=== PATIENT | female | born 1960 | race Caucasian/White ===

== ENCOUNTER → 2021-09-24 09:28 | Outpatient (CLI) | payer MEDICARE, SELFPAY ==
--- NOTE | ~2021-09-24 | CT_ITS ---
EXAMINATION:CT diagnostic chest wo con DATE: 09/24/2021 09:55 INDICATION: Chest pain under the breasts. Shortness of breath. Cough. TECHNIQUE: Computed tomography (CT) of the chest was performed without intravenous contrast. Automate d exposure control and iterative reconstruction technique were employed. The dose-length product (DLP ) was 373.40 mGy-cm. COMPARISON: None. FINDINGS: Calcified right lung nodules and calcified right hilar lymph nodes are consistent with old granulomatous disease. There are a few scattered nodules in the lungs measuring up to 4 mm, likely be nign. No pleural effusion. The heart size is normal. There are coronary artery calcifications. No per icardial effusion. There are changes of cholecystectomy. There is mild thoracic spondylosis. IMPRESSION: 1. No etiology for the patient's symptoms. Reviewed, dictated and finalized at location A. G[employer] TECHN[employer]Y
== END ==
PROVIDERS: Visit Provider Physical Medicine & Rehabilitation Pain Medicine
DX: R07.9 Chest pain, unspecified (principal)
CPT/HCPCS: 71250

== ENCOUNTER → 2021-10-10 11:31 | Outpatient (CLI) | payer MEDICARE, SELFPAY ==
--- NOTE | ~2021-10-10 | XR_ITS ---
XR knee RT 3V DATE: 10/10/2021 12:00 INDICATION: Right knee pain TECHNIQUE: AP, lateral, sunrise views COMPARISON: None FINDINGS: Diffuse osteopenia. There is minimal periarticular spurring of the patella. No fracture or dislocation or joint effusion. No periosteal reaction or bone destruction, radiopaque intra-articular loose body or chondrocalcinosis. Joint spaces are well preserved. IMPRESSION: Diffuse osteopenia Minimal periarticular spurring consistent with mild patellofemoral osteoarthritis Osteopenia Reviewed, dictated and finalized at location A. ERN CHART WRITER IMPRESSION: Diffuse osteopenia Minimal periarticular spurring consistent with mild patellofemoral osteoarthrit is Osteopenia
== END ==
PROVIDERS: PCP Internal Medicine; Visit Provider Internal Medicine
DX: M17.11 Unilateral primary osteoarthritis, right knee (principal)
CPT/HCPCS: 73562

== ENCOUNTER 2022-01-24 12:49 | Outpatient (CLI) | payer OTHER, MEDICARE, SELFPAY ==
--- NOTE | 2022-01-24 14:38 | WPDSIXMINUTE ---
Six Minute Walk Procedure Procedure Performed Pulmonary Stress Test (6 min walk) Six Minute Walk Six Minute Walk: The 6 minute walk test was carried out with the patient breathing ambient air. The pre walk oxyhemoglobin saturation was 95%. The patient walked 335 m with no stops during testing. The oxyhemoglobin saturation during the walk remained over 91%. The perceived dyspnea on the Manuel scale was 2 at baseline and increased to 8 at the end of the testing. Impression: No evidence of oxyhemoglobin desaturation on this testing.
--- NOTE | 2022-01-24 14:40 | WPDPFTINT ---
PFT Procedure Performed PFT Procedure Performed Spirometry with Pre/Post Bronchodilator Plethysmography (Lung Vol) Diffusing Cap (DLCO) Flow Vol Loop PFT Interpretation Lung volumes were measured with the body plethysmography method. The elevated RV and FRC are indicative of air trapping. The elevated total lung capacity is indicative of lung hyperinflation. Spirometry showed diminished expiratory flow rates and diminished FEV1 to FVC ratio 33%, consistent with obstructive airway disease. Following administration of a bronchodilator there was no significant increase in expiratory flow rates. Lung diffusion capacity is moderately reduced at 63% predicted. The flow volume loop is consistent with severe emphysema. Impression: Severe obstructive airway disease with evidence of air trapping, lung hyperinflation and no response to bronchodilators on this testing. Moderately reduced lung diffusion capacity.
== END 2022-01-24 12:50 | disposition home or self-care (01) ==
LOC: ANHPFT 12:52
PROVIDERS: PCP Internal Medicine; Visit Provider Internal Medicine Pulmonary Disease
DX: R06.02 Shortness of breath (principal); J44.9 Chronic obstructive pulmonary disease, unspecified
CPT/HCPCS: 94060; 94618; 94726; 94729

== ENCOUNTER 2022-03-25 14:28 | Outpatient (CLI) | payer OTHER, MEDICARE, SELFPAY ==
--- NOTE | ~2022-03-25 | MM_ITS ---
EXAMINATION: MM screening [facility] BI w carlos HISTORY: Screening mammogram TECHNIQUE: Craniocaudal and mediolateral oblique 3-D tomosynthesis images were obtained and synthetic 2-D images were generated. CAD analysis was submitted and interpreted. COMPARISON: No prior mammogram is available for comparison at this institution. BREAST PARENCHYMAL COMPOSITION: The breasts are heterogeneously dense, which may obscure small masses . FINDINGS: Left breast: An irregular proxy 4 x 5 mm density is noted in the upper outer left breast (M LO Tomosynthesis image ). Diagnostic left mammogram and left breast ultrasound examination are re commended Right breast:. There is no evidence of suspicious mass, calcification, or architectural distortion to suggest malignancy in either breast. There has been no suspicious interval change. IMPRESSION: 1. 4 x 5 mm irregular density in the upper outer left breast on MLO view. 2. Diagnostic left mammogram and left breast ultrasound examination are recommended. BI-RADS Category 0: Incomplete: Needs additional imaging evaluation. Reviewed, dictated and finalized at location A. IMPRESSION: 1. 4 x 5 mm irregular density in the upper outer left breast on MLO view. 2. Diagnostic left mammogram and left breast ultrasound examination are recomme nded. BI-RADS Category 0: Incomplete: Needs additional imaging evaluation.
== END 2022-03-25 14:29 | disposition home or self-care (01) ==
LOC: ANHIMG 14:29
PROVIDERS: PCP Physician Assistant; Visit Provider Internal Medicine
DX: Z12.31 Encounter for screening mammogram for malignant neoplasm of breast (principal); R92.8 Other abnormal and inconclusive findings on diagnostic imaging of breast
CPT/HCPCS: 77063; 77067

== ENCOUNTER 2022-04-07 13:11 | Outpatient (CLI) | payer OTHER, MEDICARE, SELFPAY ==
--- NOTE | ~2022-04-07 | MMUS_ITS ---
EXAMINATION: MM diagnostic [facility] LT w carlos, US breast LT limited HISTORY: Left breast mass on screening mammogram TECHNIQUE: Additional 3-D tomosynthesis images of the left breast were performed and synthetic 2-D im ages were generated. CAD analysis was submitted and interpreted. High resolution limited left breast ultrasound was performed. COMPARISON: 03/25/2022 FINDINGS: MAMMOGRAPHIC FINDINGS: There is a 5 mm mass in the middle third of the outer breast at the 3:00 location 5 cm from the nippl e. The mass appears to contain fat, suggestive of an intramammary lymph node. ULTRASOUND: There is no evidence of focal abnormal solid or cystic mass in the vicinity of the mammographic findi ng in question. IMPRESSION: 1. Probably benign left breast mass. 2. Recommend 6 month follow-up left diagnostic mammogram and possible ultrasound. BI-RADS category 3, probably benign findings. Reviewed, dictated and finalized at location A. IMPRESSION: 1. Probably benign left breast mass. 2. Recommend 6 month follow-up left diagnostic mammogram and possible ultrasoun d. BI-RADS category 3, probably benign findings.
== END 2022-04-07 13:12 | disposition home or self-care (01) ==
PROVIDERS: PCP Internal Medicine; Visit Provider Internal Medicine
DX: R92.8 Other abnormal and inconclusive findings on diagnostic imaging of breast (principal)
CPT/HCPCS: 76642; 77061; 77065; G0279

== ENCOUNTER 2022-08-07 11:23 | Outpatient (CLI) | payer OTHER, MEDICARE, SELFPAY ==
--- NOTE | ~2022-08-07 | DEXA_ITS ---
Bone Density Report Name: ORTIZ MALIK Age: 61 Sex: Female Ethnicity: White Date of : 1960 Indication: postmenopausal; screening for osteoporosis; asthma or emphysema; hysterectomy; Referring Provider: CANDELARIO, FELICITAS Giraldo Study: Bone densitometry was performed. Exam Date: August 07, 2022 Accession number: [id number] Bone Density: Region BMD T-score Z-score Classification AP Spine(L1-L4) 0.802 -2.2 -0.7 Osteopenia Femoral Neck (Left) 0.633 -1.9 -0.6 Osteopenia Total Hip (Left) 0.751 -1.6 -0.5 Osteopenia Femoral Neck (Right) 0.641 -1.9 -0.5 Osteopenia Total Hip (Right) 0.806 -1.1 -0.1 Osteopenia Total Hip Mean 0.779 -1.4 -0.3 Osteopenia World Health Organization criteria for BMD impression classify patients as: Normal (T-score at or above -1.0), Osteopenia (T-score between -1.0 and -2.5), or Osteoporosis (T-score at or below -2.5). 10-year Fracture Risk(1): Major Osteoporotic Fracture 9.1% Hip Fracture 1.1% Reported Risk Factors: [place] (), Neck BMD=0.633, BMI=34.6 (1) FRAX(R) Version 3.08. Fracture probability calculated for an untreated patient. Fracture probability may be lower if the patient has received treatment. Clinical Information Provided by Patient: Has used the following medications: Vitamin D Has the following medical conditions: Asthma or Emphysema, Hysterectomy Patient maximum height was 62 Menopause Age: 38 No regular weight bearing exercise Drinks caffeinated beverages Onset of menses at age 13 Number of children 1 Impression: The patient has low bone mass, based on the Total Spine T-score. The patient has an estimated ten-year risk of hip fracture of 1.1% and an estimated ten-year risk of major fracture of 9.1%, based on the WHO FRAX algorithm. Discussion: BONE DENSITY IS LOW AT ONE OR MORE SKELETAL SITES. This patient's lowest T-score is low at one or more skeletal sites. It meets the World Health Organization's (WHO) criteria for ?low bone mass? (T-score between -1.0 and -2.5). The patient's 10-year risk of fracture as calculated by FRAX is less than the threshold where pharmacological therapy is recommended by the National Osteoporosis Foundation (NOF). However, all treatment decisions require clinical judgment and consideration of individual patient factors, including patient preferences, comorbidities, previous drug use, risk factors not captured in the FRAX model (e.g., frailty, falls, vitamin D deficiency, increased bone turnover, interval significant decline in bone density) and possible under or overestimation of fracture risk by FRAX. The patient should follow a healthful lifestyle (good nutrition with adequate calcium and vitamin D, and appropriate weight-bearing exercise). Follow-Up: Consider repeating this study in 2 to 3 year
== END 2022-08-07 11:24 | disposition home or self-care (01) ==
PROVIDERS: PCP Internal Medicine; Visit Provider Internal Medicine
DX: Z78.0 Asymptomatic menopausal state (principal); M85.88 Other specified disorders of bone density and structure, other site; M85.852 Other specified disorders of bone density and structure, left thigh; M85.851 Other specified disorders of bone density and structure, right thigh
CPT/HCPCS: 77080

== ENCOUNTER 2022-09-25 12:28 | Outpatient (CLI) | payer OTHER, MEDICARE, SELFPAY ==
--- NOTE | ~2022-09-25 | CT_ITS ---
CT Scan of the Chest without Contrast: Clinical Indication: Pulmonary nodule Technique: Contiguous sections were acquired throughout the chest without intravenous contrast. Dose reduction technique was used on this scan by utilizing automated exposure control and iterative recon struction technique. The dose-length product (DLP) was 151.80 mGy-cm. COMPARISON: 09/24/2021 Findings: There is no evidence of any significant mediastinal, hilar or axillary lymphadenopathy. The mediastin al soft tissues appear normal. There is no evidence of pleural or pericardial effusion. Subcentimeter pulmonary nodules at the right middle lobe and right lower lobe near the lung base are unchanged from prior exam (axial images 63, 61). Stable left lower lobe pulmonary nodule (axial image 73). Additional calcified granulomas are present. Images through the upper abdomen reveal no abnormalities. Impression: Stable subcentimeter pulmonary nodules, as detailed above, most likely benign. Reviewed, dictated and finalized at [facility]. CRANE OPERATOR Impression: Stable subcentimeter pulmonary nodules, as detailed above, most likely benign.
== END 2022-09-25 12:29 | disposition home or self-care (01) ==
PROVIDERS: PCP Internal Medicine; Visit Provider Physician Assistant
DX: R91.1 Solitary pulmonary nodule (principal)
CPT/HCPCS: 71250

== ENCOUNTER 2023-09-28 10:08 | Outpatient (CLI) | payer OTHER, MEDICARE, SELFPAY ==
--- NOTE | ~2023-09-28 | CT_ITS ---
CT Scan of the Chest without Contrast: Clinical Indication: Lung cancer screening, personal history of nicotine dependence Technique: Contiguous sections were acquired throughout the chest without intravenous contrast. Dose reduction technique was used on this scan by utilizing automated exposure control and iterative recon struction technique. The dose-length product (DLP) was 89.58 mGy-cm. COMPARISON: 09/25/2022 Findings: There is no evidence of any significant mediastinal, hilar or axillary lymphadenopathy. The mediastin al soft tissues appear normal. There is no evidence of pleural or pericardial effusion. 3 mm right lower lobe pulmonary nodule present. Stable 2 mm lobe pulmonary nodule. Stable subcentimet er left lower lobe pulmonary nodule. Calcified right basilar granulomas are present. Images through the upper abdomen reveal no abnormalities. Impression: Lung RADS 2: Benign appearance. 12 month follow-up screening CT advised. Reviewed, dictated and finalized at [facility]. PATCHER Impression: Lung RADS 2: Benign appearance. 12 month follow-up screening CT advised.
== END 2023-09-28 10:09 | disposition home or self-care (01) ==
LOC: ANHIMG 10:10
PROVIDERS: PCP Internal Medicine; Visit Provider Physician Assistant
DX: Z12.2 Encounter for screening for malignant neoplasm of respiratory organs (principal); Z87.891 Personal history of nicotine dependence
CPT/HCPCS: 71271

== ENCOUNTER 2024-02-25 15:40 | Outpatient (CLI) | payer OTHER, MEDICARE, SELFPAY ==
--- NOTE | ~2024-02-25 | MM_ITS ---
EXAMINATION: MM screening [facility] BI w carlos HISTORY: Screening mammogram TECHNIQUE: Craniocaudal and mediolateral oblique 3-D tomosynthesis images were obtained and synthetic 2-D images were generated. CAD analysis was submitted and interpreted. COMPARISON: 04/07/2022, 03/25/2022 BREAST PARENCHYMAL COMPOSITION:Dense: The breasts are heterogeneously dense, which may obscure small masses. FINDINGS: No suspicious mass, calcification, or architectural distortion are identified in either christine ast to suggest malignancy. There has been no suspicious interval change. IMPRESSION: No mammographic evidence of malignancy. Recommend routine screening mammography in one year. BI-RADS Category 1: Negative Reviewed, dictated and finalized at location .
== END 2024-02-25 15:41 | disposition home or self-care (01) ==
PROVIDERS: PCP Internal Medicine; Visit Provider Internal Medicine
DX: Z12.31 Encounter for screening mammogram for malignant neoplasm of breast (principal); Z87.891 Personal history of nicotine dependence
CPT/HCPCS: 77063; 77067

== ENCOUNTER 2024-08-26 15:09 | Emergency (ER) | payer OTHER, MEDICARE, SELFPAY ==
--- NOTE | ~2024-08-26 | XR_ITS ---
[id number] Ordering provider: Rafy Correia History: . R chest pain . Comparison: None. FINDINGS: BONES: Possible fracture in the right third rib.. LUNGS: No effusions or infiltrates. No pneumothorax. SOFT TISSUES: Normal. IMPRESSION: Highly suggestive fracture in the right fifth rib. Follow-up advised. Reviewed, dictated and finalized at location A. [employer] ARE[employer] SUPERVISOR
[2024-08-26 15:27] VITALS: BP 112/54; PULSE 84; RESP 18; TEMP 36.2; O2SAT 94
--- NOTE | 2024-08-26 16:51 | ED.ABDPAIN ---
HPI - Abdominal Pain General Chief Complaint: Abdominal Pain Stated Complaint: RUQ pain Focused HPI: This is a 63-year-old female who presents to the ED for chief complaint of right-sided chest wall pain x2 months. Reports that she was seen by her doctor outpatient today who sent her to the ER for x-rays. She reports the pain is worse with certain movements and is tender to palpation over the right lower anterior ribs. Denies fevers, chills, exertional component to pain, lightheadedness. GENERAL: Well-appearing, well-nourished, and in no acute distress. HEAD: Normocephalic, atraumatic. CHEST: Clear to auscultation. No respiratory distress. Right lower anterior chest wall tenderness over the ribs. HEART: Regular rate and rhythm. ABD: Soft, grossly nontender. Antonio sign negative. NEURO: Alert and oriented x3. Patient screened in triage and initial orders placed. Additional care and disposition to be based upon diagnostic testing and treatment. Source: patient Mode of arrival: ambulatory Limitations: no limitations Related Data Home Medications ?Medication ?Instructions ?Recorded ?Confirmed ?Last Taken ?Type atenolol 50 mg tablet 50 mg PO DAILY 01/07/22 04/28/24 Unknown History atorvastatin 10 mg tablet 10 mg PO DAILY 01/07/22 04/28/24 Unknown History black cohosh 200 mg capsule 200 mg PO DAILY 01/07/22 04/28/24 Unknown History buspirone 5 mg tablet 5 mg PO BID 01/07/22 04/28/24 Unknown History cholecalciferol (vitamin D3) 50 50 mcg PO DAILY 01/07/22 04/28/24 Unknown History mcg (2,000 unit) capsule cinnamon bark 500 mg capsule 500 mg PO DAILY 01/07/22 04/28/24 Unknown History fluoxetine 40 mg capsule 40 mg PO DAILY 01/07/22 04/28/24 Unknown History hydrocodone 5 mg-acetaminophen 325 1 tablet PO Q4H PRN 01/07/22 04/28/24 Unknown History mg tablet ipratropium 0.5 mg-albuterol 3 mg 3 ml inhalation Q4H PRN 01/07/22 04/28/24 Unknown History (2.5 mg base)/3 mL nebulization soln levothyroxine 75 mcg capsule 75 mcg PO DAILY 01/07/22 04/28/24 Unknown History multivitamin with minerals 1 tablet PO DAILY 01/07/22 04/28/24 Unknown History (Multiple Vitamin-Minerals tablet) omeprazole 20 mg capsule,delayed 20 mg PO BID 01/07/22 04/28/24 Unknown History release pregabalin 150 mg capsule 150 mg PO BID 01/07/22 04/28/24 Unknown History tizanidine 4 mg capsule 4 mg PO QHS PRN 01/07/22 04/28/24 Unknown History Allergies Allergy/AdvReac Type Severity Reaction Status Date / Time perfume Allergy Unknown Unknown Verified 04/28/24 11:38 [facility] Past Medical History Medical History Back pain Costochondritis Depression History of stress test Hyperlipidemia Occasional tremors On home oxygen therapy Surgical History Surgical History History of arthroscopy of left knee meniscus repair History of cholecystectomy (~2013) History of colonoscopy (~2012) History of hysterectomy (~1998) History of thyroid surgery (~2014) Social History Social History Smoking packs per day: 1 Smoking cigarettes per day: 20.0 Smoking status: Former smoker Tobacco type: cigarettes Alcohol intake: never Substance use: never Substance use type: does not use Lack of Transportation: No Lack of Food: Often True Current Housing: I Have Housing Concerned About Future Housing: No Difficulty Paying Gas/Electric Bills: No Difficulty Paying for Meds: No Currently Unemployed: No Education: Decline to Answer Difficulty w/ Childcare or Family Care: No Course Vital Signs Vital signs: Vital Signs Temperature 97.2 F L 08/26/24 15:27 Pulse Rate 84 08/26/24 15:27 Respiratory Rate 18 08/26/24 15:27 Blood Pressure 112/54 L 08/26/24 15:27 Pulse Oximetry 94 08/26/24 15:27 Oxygen Delivery Room Air 08/26/24 15:27 Temperature 97.2 F L 08/26/24 15:27 Pulse Rate 84 08/26/24 15:27 Respiratory Rate 18 08/26/24 15:27 Blood Pressure 112/54 L 08/26/24 15:27 Pulse Oximetry 94 08/26/24 15:27 Oxygen Delivery Room Air 08/26/24 15:27 Discharge Plan Discharge Instructions: Antibiotic Form Patient Language: [place] Islander Prescriptions: No Action atenolol 50 mg tablet 50 mg PO DAILY atorvastatin 10 mg tablet 10 mg PO DAILY black cohosh 200 mg capsule 200 mg PO DAILY buspirone 5 mg tablet 5 mg PO BID cholecalciferol (vitamin D3) 50 mcg (2,000 unit) capsule 50 mcg PO DAILY cinnamon bark 500 mg capsule 500 mg PO DAILY fluoxetine 40 mg capsule 40 mg PO DAILY pregabalin 150 mg capsule 150 mg PO BID hydrocodone-acetaminophen 5-325 mg tablet 1 tablet PO Q4H PRN ipratropium-albuterol 0.5 mg-3 mg(2.5 mg base)/3 mL solution for nebulization 3 ml inhalation Q4H PRN levothyroxine 75 mcg capsule 75 mcg PO DAILY Multiple Vitamin-Minerals Tablet 1 tablet PO DAILY omeprazole 20 mg capsule,delayed release(DR/EC) 20 mg PO BID tizanidine 4 mg capsule 4 mg PO QHS PRN roflumilast 500 mcg tablet 500 mcg PO DAILY Qty: 30 3RF Rx Instructions: Take 250mcg once daily x 4 weeks, then increase to 500mcg once daily thereafter. albuterol sulfate 90 mcg/actuation aerosol powdr breath activated 2 inh inhalation Q4-6H PRN (Reason: shortness of breath or wheezing) Qty: 1 2RF fluticasone propionate [Flonase Allergy Relief] 50 mcg/actuation spray,suspension 1 spray intranasal BID Qty: 16 3RF Rx Instructions: administer into each nostril Breztri Aerosphere 160-9-4.8 mcg/actuation HFA aerosol inhaler See Rx Instructions .ROUTE .COMPLEX Qty: 10.7 5RF Dose Instruction: INHALE 2 PUFFS INTO THE LUNGS TWICE A DAY Rx Instructions: INHALE 2 PUFFS INTO THE LUNGS TWICE A DAY loratadine 10 mg tablet See Rx Instructions .ROUTE .COMPLEX Qty: 90 3RF Dose Instruction: TAKE 1 TABLET BY MOUTH EVERY DAY Rx Instructions: TAKE 1 TABLET BY MOUTH EVERY DAY Follow-up/Referrals: Ammy,Roosevelt Giraldo MD [Primary Care Provider] -
[2024-08-26 20:15] LABS: Basophils Percent Auto 0.3 % (0.2-1.2); Eosinophils Absolute Auto 0.1 K/mm3 (0-0.3); Eosinophils Percent Auto 0.9 % (0-4.4); Hemoglobin 12.7 g/dL (12.0-15.0); Immature Granulocyte Absolute 0.05 K/mm3 (0.00-0.031); Immature Granulocyte Percent A 0.4 % (0-0.5); Lymphocytes Percent Auto 32.8 % (18.3-44.2); Mean Corpuscular HGB Conc 32.6 g/dl (32-36); Mean Corpuscular Hemoglobin 30.8 pg (26-34); Mean Corpuscular Volume 94.4 fl (80-100); Mean Platelet Volume 9.4 fl (7.4-10.4); Monocytes Absolute Auto 0.9 K/mm3 (0.1-0.6); Monocytes Percent Auto 7.9 % (2.6-8.5); Neutrophils Absolute Auto 6.7 K/mm3 (1.3-6.7); Neutrophils Percent Auto 57.7 % (45.5-73.1); Platelet Count Result 220 k/mm3 (150-375); Red Blood Count 4.13 M/mm3 (4.2-5.4); Red Cell Distribution Width 12.1 % (11.5-14.5); White Blood Count 11.6 K/mm3 (4.5-10.0)
[2024-08-26 20:26] LABS: Alanine Aminotransferase 21 U/L (6-35); Albumin Level 4.1 g/dL (3.5-5.1); Alkaline Phosphatase 89 U/L (38-126); Anion Gap 1 mmol/L (4-12); Aspartate Amino Transferase 29 U/L (14-36); Bilirubin,Total 0.3 mg/dL (0.2-1.3); Blood Urea Nitrogen 18 mg/dL (7-17); Carbon Dioxide 32 mmol/L (22-30); Chloride 99 mmol/L (98-107); Estimated CRCL calculation 60 ml/min; Estimated Glomerular Filt Rate > 60; Glucose 103 mg/dL (65-110); Lipase 84 U/L (23-300); Potassium 3.9 mmol/L (3.4-5.0); Sodium 132 mmol/L (137-145)
== END 2024-08-26 21:36 | disposition left against medical advice (07) ==
LOC: ANHED 21:53
PROVIDERS: Emergency Provider Physician Assistant; PCP Internal Medicine
DX: R07.89 Other chest pain (principal); E78.5 Hyperlipidemia, unspecified; F32.A Depression, unspecified; Z99.81 Dependence on supplemental oxygen; Z87.891 Personal history of nicotine dependence; Z90.49 Acquired absence of other specified parts of digestive tract; Z90.710 Acquired absence of both cervix and uterus; Z79.899 Other long term (current) drug therapy
CPT/HCPCS: 36415; 71101; 80053; 83690; 85025; 99283

== ENCOUNTER 2024-09-29 09:28 | Outpatient (CLI) | payer OTHER, SELFPAY ==
--- NOTE | ~2024-09-29 | CT_ITS ---
EXAMINATION:CT lung screening DATE: 09/29/2024 09:47 INDICATION: Personal history of nicotine dependence. Smoker who quit 13 years ago with 30 pack year h istory. TECHNIQUE: Computed tomography (CT) of the chest was performed without intravenous contrast. Automate d exposure control and iterative reconstruction technique were employed. The dose-length product (DLP ) was 110.94 mGy-cm. COMPARISON: Chest CT 09/28/2023 FINDINGS: Calcified right lung nodules and calcified right hilar lymph nodes are consistent with old granulomatous disease. There are a few scattered nodules in the lungs measuring up to 3 mm. No pleura l effusion. The heart size is normal. There are coronary artery calcifications. No pericardial effusi on. There are changes of cholecystectomy. There are healing fractures of right fifth and sixth ribs. There is mild thoracic spondylosis. IMPRESSION: 1. Lung-RADS category 2: Benign appearance or behavior. Continue annual screening with noncontrast lo w-dose chest CT in 12 months. Reviewed, dictated and finalized at location A. SLINGER IMPRESSION: 1. Lung-RADS category 2: Benign appearance or behavior. Continue annual screeni ng with noncontrast low-dose chest CT in 12 months.
--- OUTSIDE RECORDS SUMMARY | 2024-09-29 10:01 | XMS_ITS | Data Portability ---
Author Organization [facility], Main Office Address [address] [place] [address] Assessment No assessment recorded. Plan of Treatment Reminders Order Date Submit Date Provider Last Modified By Organization Details Last Modified Time Details Appointments Any 15 2024 10:00A M Roosevelt Gimenez MD Not available Not available Not available Lab CBC w/ auto diff [address] (Lab), [address] [place], [address], 10/27/2023 08:56:35 vitamin D, 25-hydrox y, total, serum [address] (Lab), [address] [place], [address], 10/27/2023 08:56:35 lipid panel, serum [address] (Lab), [address] [place], [address], 10/27/2023 08:56:35 CMP, serum or plasma [address] (Lab), [address] [place], [address], 10/27/2023 08:56:34 TSH, serum or plasma [address] (Lab), [address] [place], [address], 10/27/2023 08:56:34 T4, free, serum [address] (Lab), [address] [place], [address], 10/27/2023 08:56:34 vitamin D, 25-hydrox y, total, serum [address] (Lab), [address] [place], [address], 02/23/2024 08:23:21 Referral None recorded. Procedures None recorded. Surgeries None recorded. Imaging MAMMO, screening , digital, bilateral [address] Imaging, [address], [place], [address], 11/02/2023 09:15:22 MAMMO, screening , digital, bilateral 2023 [email or web address] [place] [address] Imaging, [address], [place], [address], 02/15/2024 08:24:30 LDCT, chest, for lung cancer screening 2023 024 [email or web address], [address], [place], [address], 02/02/2024 09:23:04 Medication Orders Naprosyn 500 mg tablet 2023 024 [facility]armacy #[id number], [address], [place], [address], 08/02/2024 15:31:19 benzonata te 200 mg capsule 2023 024 [facility]armacy #[id number], [address], [place], [address], 08/02/2024 15:31:20 benzonata te 200 mg capsule 2024 025 [facility]/Pharmacy #[id number], [address] , [place], [address], 09/01/2024 15:04:58 tizanidin e 4 mg tablet 2024 025 [facility]/Ph[facility]acy #[id number], [address], [place], [address], 09/01/2024 15:04:58 Patient TargetsNo targets recorded. Patient Instructions Encounter Date Encounter Id Patient Instructions Last Modified By Organization Details Last Modified Time 06/06/2024 [id number] dementia rating scale-2* Not available 06/06/2024 14:14:40 depression screening* Not available 06/06/2024 14:14:40 alcohol misuse* Not available 06/06/2024 14:14:40 Timed Up and Go test (TUG)* Not available 06/06/2024 14:14:40 multi-dimensiona l health assessment questionnaire* Not available 06/06/2024 14:14:40 Personalized [facility] lt Plan and Screening Recommendations Advance Directives - Do you have one? Yes Advance Directives - Do we have your advance directive on file in your health record? Primary Prevention/Interven tion (prevents or decreases the chance of common diseases from occurring) Smoking Risk: Non Smoker Alcohol Misuse Screening: Negative Weight: Appropriate Overwei ght continue your current weight loss efforts try to lose 5% of your body weight try to lose 10% of your body weight try to lose 15% of your body weight Physical activity: minimum of 10-20 minutes of activity that causes mild breathlessness/day Nutrition: Good Average Refer to attached handout Heart-Healthy Diet: After Your Visit Refer to attached handout DASH Diet: After Your Visit Fall Risk (screened today): Low Vaccines Pneumococcal: Ordered Recommended today Recommended today, but you have declined No further needed Influenza: Ordered Recommended today Chronic Disease Risks Stroke: Low Risk Intermediate Risk I have no recommendations Act deon diagnosis, Continue current treatment plan Heart Attack: Low risk Intermediate Risk I have no recommendations Act deon diagnosis, Continue current treatment plan Clogging of the Arteries: Low risk Intermediate Risk I have no recommendations Act deon diagnosis, Continue current treatment plan Diabetes: Low Risk Secondary Prevention/Interven tion (detects treatable diseases before they may cause symptoms, disability, or ) Breast Cancer Screening with mammogram: Cervical/Uterine/Ov ayo Cancer Screening: Osteoporosis Screening: Your next DEXA in: Ordered Recomme nded today Date Screening Last Performed: 08/18/2022 Colon Cancer Screening: Colonoscopy Date Screening Last Performed: 2017 Eye Disease Screening: Ordered Recommended today Dementia Risk: Low I have no recommendations Depression Screening: Negative [email or web address] Not available 06/06/2024 12:48:58 Reason for Referral None Reported. Results Created Date Observation Date Name Description Value Unit Range Abnormal Flag Note LastModifiedBy Organization Detail LastModifiedTime 02/01/20 24 09/28/2023 LDCT, chest , for lung cance r salliee jake No observ ation record ed. Not Available 2023 11:24:22 08/29/20 24 08/26/2024 XR, ribs, unila teral No observ ation record ed. BARCODE Not Available 2023 18:11:32 Result Notes None recorded. Problems Name Problem SNOMED Code Status Onset Date Resolution Date Notes Provider Name and Address Organization Details Recorded Time Chronic obstructi ve pulmonary disease 29260649 Active 2021 Not Available [facility] 3 13:34:11 Mammograp hy abnormal 287335214 Active 2021 Not Available [facility] 3 13:34:11 Gastroeso phageal reflux disease 086803449 Active 2021 Not Available [facility] 3 13:34:11 Long-term drug therapy Completed 202102/20/2022 Not Available [facility] 3 00:05:34 Adult health examinati on Active 2021 Not Available [facility] 3 13:34:11 Osteopeni a 218315292 Active 2022 Not Available [facility] 3 13:34:11 Depressiv e disorder 98814643 Active 2021 Not Available [facility] 3 13:34:11 Hypothyro idism 66685551 Active 2021 Not Available [facility] 3 13:34:11 Pain of right knee joint 05054213065 4100 Completed 202102/20/2022 Not Available [facility] 3 00:05:34 Anxiety 37593115 Active 2021 Not Available [facility] 3 13:34:11 Acute upper respirato ry infection 85272149 Active 2021 Not Available [facility] 3 13:34:11 Hyperlipi demia 15025640 Active 2021 Not Available [facility] 3 13:34:11 Essential hypertens ion 69460705 Active 2021 Not Available [facility] 3 13:34:11 Postmenop ausal state 82661383 Active 2021 Not Available [facility] 3 13:34:11 Nodule of lung 019305733 Active 2022 Not Available [facility] 3 13:34:11 Cough 19638217 Active 2023 TAE Huber, [employer] 4 14:43:45 Chest wall pain 608080055 Active 2023 Roosevelt Gimenez MD [address], [address], [place], [address] , [employer] 4 15:29:16 Muscle pain 09219375 Active 2024 Cher Lamb NP [address], [address], [place], [address] , [employer] 5 14:55:04 Problem Notes None recorded. Procedures Surgical History Date Name Laterality Status Provider Name and Address Organization Details Recorded Time 06/06/20 24 Medicare Wellness CPT Code, subsequent completed Clarissa Naidu RN [facility] [employer] 06/06/2024 11:53:02 thyroidectomy completed Not Available [facility] 10/30/2022 00:04:57 Cholecystectomy completed Not Available [facility] 10/30/2022 00:04:57 Hysterectomy completed Not Available [facility] 10/30/2022 00:04:57 Imaging Results Imaging Date Name Status LastModified by Organiz ation Details LastModified Time 09/28/2023 LDCT, chest, for lung cancer screening completed Information not available 06/06/2024 11:24:22 08/26/2024 XR, ribs, unilateral completed [facility] Information not available 08/29/2024 18:11:32 Procedure Notes None recorded. Medical Equipment None Reported. Allergies No known drug allergies Medications Name Sig Start Date Stop Date Status Note LastModified by Organization Details LastModified Time fluoxetine 40 mg capsule TAKE 1 CAPSULE BY MOUTH EVERY DAY IN THE MORNING active Not Available Not Available No t Available buspirone 5 mg tablet TAKE 1 TABLET BY MOUTH TWICE A DAY 2024 active Not Available Not Available Not Avai lable gabapentin 600 mg tablet TAKE 1 TABLET BY MOUTH THREE TIMES A DAY FOR 30 DAYS 06/06 completed Not Available Not Available Not Available atorvastati n 10 mg tablet TAKE 1 TABLET BY MOUTH EVERY DAY active Not Available Not Available No t Available azithromyci n 250 mg tablet TAKE 2 TABLETS BY MOUTH TODAY, THEN TAKE 1 TABLET DAILY FOR 4 DAYS 09/11 completed Not Available Not Available Not Available tizanidine 4 mg tablet TAKE 1-2 TABLETS BY MOUTH ONCE EVERY NIGHT AT BEDTIME active Not Available Not Available No t Available benzonatate 200 mg capsule Take 1 capsule 3 times a day by oral route as needed. 2024 active Not Available Not Available Not Avai lable hydrocodone 5 mg-acetamin ophen 325 mg tablet TAKE 1 TABLET BY MOUTH EVERY 4 TO 6 HOURS NEEDED FOR PAIN active Not Available Not Available No t Available omeprazole 40 mg capsule,del ayed release TAKE 1 CAPSULE BY MOUTH EVERY DAY NEEDED 08/02 completed Not Available Not Available Not Available amoxicillin 500 mg tablet TAKE 1 TABLET BY MOUTH 3 TIMES A DAY FOR 7 DAYS 08/02 completed Not Available Not Available Not Available levothyroxi ne 75 mcg tablet TAKE 1 TABLET BY MOUTH EVERY DAY active Not Available Not Available No t Available gabapentin 800 mg tablet TAKE 1 TABLET BY MOUTH THREE TIMES A DAY NEEDED active Not Available Not Available No t Available omeprazole 20 mg capsule,del ayed release TAKE 1 CAPSULE BY MOUTH EVERY DAY active Not Available Not Available No t Available methylpredn isolone 4 mg tablets in a dose pack TAKE 6 TABLETS ON DAY 1 DIRECTED ON PACKAGE AND DECREASE BY 1 TAB EACH DAY FOR A TOTAL OF 6 DAYS 06/06 completed Not Available Not Available Not Available fluticasone propionate 50 mcg/actuati on nasal spray,suspe nsion 1 SPRAY INTRANASA LLY TWICE A DAY ADMINISTE R INTO EACH NOSTRIL active Not Available Not Available No t Available atenolol 50 mg tablet TAKE 1 TABLET BY MOUTH EVERY DAY 2024 active Not Available Not Available Not Avai lable loratadine 10 mg tablet TAKE 1 TABLET BY MOUTH EVERY DAY active Not Available Not Available No t Available naproxen 500 mg tablet TAKE 1 TABLET BY MOUTH TWICE A DAY active Not Available Not Available No t Available diazepam 5 mg tablet TAKE 1 TABLET BY MOUTH THE EVENING BEFORE APPOINTME NT THEN 1 TAB 1 HOUR PRIOR TO APPOINTME NT 10/20 completed Not Available Not Available Not Available amoxicillin 875 mg-potassiu m clavulanate 125 mg tablet TAKE 1 TABLET BY MOUTH EVERY 12 HOURS FOR 7 DAYS 12/01 completed Not Available Not Available Not Available pregabalin 150 mg capsule TAKE 1 CAPSULE BY MOUTH TWICE A DAY 10/20 completed Not Available Not Available Not Available Vitamin D3 50 mcg (2,000 unit) capsule Take 1 capsule every day by oral route. 2021 active Not Available Not Available Not Avai lable ProAir RespiClick 90 mcg/actuati on breath activated INHALE 2 PUFFS BY MOUTH EVERY 4 - 6 HOURS NEEDED FOR SHORTNESS OF BREATH OR WHEEZING active Not Available Not Available No t Available Breztri Aerosphere 160 mcg-9mcg-4. 8mcg/actuat ion HFA aerosol inhaler INHALE 2 PUFFS INTO THE LUNGS TWICE A DAY active Not Available Not Available No t Available Vitals Date Recorded Body height Body mass index (BMI) Body weight Body temperature Heart rate Oxygen saturation Oxygen saturation in Arterial blood by Pulse oximetry Systolic blood pressure Diastolic blood pressure Provider Name and Address Organization Details Last Updated DateTime 4 154.94 cm 33.3 kg/m2 19558.2 6 g 97.5 [degF] 65 /min 97 % 97 % 118 mm[Hg] 64 mm[Hg] Sarai Dodd CMA [facility] [employer] [facility] 4 11:17:29 Date Recorded Body height Body mass index (BMI) Body weight Heart rate Oxygen saturation Oxygen saturation in Arterial blood by Pulse oximetry Systolic blood pressure Diastolic blood pressure Provider Name and Address Organization Details Last Updated DateTime 4 154.94 cm 32.8 kg/m2 08631.3 5 g 78 /min 93 % 93 % 120 mm[Hg] 80 mm[Hg] Fiona Sy Paulo [facility] [employer] [facility] 4 11:06:22 Date Recorded Body height Body mass index (BMI) Body weight Heart rate Oxygen saturation Oxygen saturation in Arterial blood by Pulse oximetry Body temperature Systolic blood pressure Diastolic blood pressure Provider Name and Address Organization Details Last Updated DateTime 4 154.94 cm 32.9 kg/m2 25173.0 7 g 62 /min 97 % 97 % 97.4 [degF] 124 mm[Hg] 76 mm[Hg] Romina degroot Paulo [facility] [employer] [facility] 4 11:04:25 Date Recorded Body height Body mass index (BMI) Body weight Body temperature Heart rate Oxygen saturation Oxygen saturation in Arterial blood by Pulse oximetry Inhaled oxygen flow rate Provider Name and Address Organization Details Last Updated DateTime 4 154.94 cm 33.6 kg/m2 33892.4 4 g 98.1 [degF] 80 /min 96 % 96 % 2 L/min Romina degroot [facility] [employer] [facility] 4 15:01:49 Date Recorded Body height Body mass index (BMI) Body weight Body temperature Heart rate Oxygen saturation Oxygen saturation in Arterial blood by Pulse oximetry Systolic blood pressure Diastolic blood pressure Provider Name and Address Organization Details Last Updated DateTime 5 154.94 cm 31.6 kg/m2 00949.9 3 g 97.5 [degF] 75 /min 94 % 94 % 140 mm[Hg] 86 mm[Hg] Tricia rivera [facility] [employer] [facility] 5 14:34:30 Social History Question Answer Notes LastModified by Organization Details LastModified Time Tobacco Smoking Status Former Smoker Not Available [facility] 10/30/2022 00:04:43 Do You Have An Advance Directive? Yes Requested Copy For Office 06/06/2024 [email or web address] Information not available 06/06/2024 What Is Your Level Of Alcohol Consumption? Occasional MIGRATION.0301 [id number] Information not available 10/30/2022 How Many Years Have You Consumed Alcohol? 47 16 [email or web address] Information not available 06/06/2024 Do You Wear A Helmet When Biking? No MIGRATION.0301 [id number] Information not available 10/30/2022 Is Blood Transfusion Acceptable In An Emergency? Yes [email or web address] Information not available 06/06/2024 What Is Your Level Of Caffeine Consumption? Moderate MIGRATION.0301 [id number] Information not available 10/30/2022 In The 14 Days Before Symptom Onset, Have You Had Close Contact With A Laboratory-conf irmed COVID-19 While That Case Was Ill? No Not Applicable [email or web address] Information not available 06/06/2024 In The 14 Days Before Symptom Onset, Have You Had Close Contact With A Person Who Is Under Investigation For COVID-19 While That Person Was Ill? No MIGRATION.0301 [id number] Information not available 10/30/2022 Are You Currently Employed? No [email or web address] Information not available 06/06/2024 What Type Of Diet Are You Following? REGULAR MIGRATION.030 [id number] Information not available 10/30/2022 What Is The Highest Grade Or Level Of School You Have Completed Or The Highest Degree You Have Received? [id number] MIGRATION.030 085426 Information not available 10/30/2022 How Many Days Of Moderate To Strenuous Exercise, Like A Brisk Walk, Did You Do In The Last 7 Days? 0 [email or web address] Information not available 06/06/2024 Have There Been Any Changes To Your Family Or Social Situation? No MIGRATION.0301 [id number] Information not available 10/30/2022 What Is The Fluoride Status Of Your Home? Fluoridated [email or web address] Information not available 06/06/2024 When Did You Quit Smoking? 6-10yearssincelast cigarette MIGRATION.030 [id number] Information not available 10/30/2022 Are There Any Guns Present In Your Home? Yes MIGRATION.0301 505269 Information not available 10/30/2022 Do You Use Insect Repellent Routinely? No MIGRATION.0301 [id number] Information not available 10/30/2022 Where Do You Live? SingleLevelHouse [email or web address] Information not available 06/06/2024 Presence Of Domestic Violence No [email or web address] Information not available 06/06/2024 Guns Present In The Home? Yes [email or web address] Information not available 06/06/2024 Are You Able To Care For Yourself? Yes [email or web address] Information not available 06/06/2024 Are You Blind Or Do Yo Have Difficulty Seeing? No [email or web address] Information not available 06/06/2024 Are You Deaf Or Do You Have Serious Difficulty Hearing? No [email or web address] Information not available 06/06/2024 General Stress Level? Low [email or web address] Information not available 06/06/2024 Live Alone Of With Others? With Others [email or web address] Information not available 06/06/2024 Do You Have A Medical Power Of Cash Specialist? Yes [email or web address] Information not available 06/06/2024 What Was The Date Of Your Most Recent Tobacco Screening? 06/06/2024 [email or web address] Information not available 06/06/2024 How Many Children Do You Have? 1 [email or web address] Information not available 06/06/2024 What Is Your Current Pack Years? 20-29packyears [email or web address] Information not available 06/06/2024 Have You Ever Been Counseled For Unhealthy Alcohol Use? No MIGRATION.0301 [id number] Information not available 10/30/2022 Do You Have Any Pets? Yes MIGRATION.0301 [id number] Information not available 10/30/2022 Do You Use Protection During Sex? No [email or web address] Information not available 06/06/2024 What Is Your Relationship Status? MIGRATION.0301 728515 Information not available 10/30/2022 Do You Use Your Seat Belt Or Car Seat Routinely? Yes MIGRATION.0301 [id number] Information not available 10/30/2022 Are You Sexually Active? Yes [email or web address] Information not available 06/06/2024 Do You Have Smoke And Carbon Monoxide Detectors In Your Home? Yes MIGRATION.0301 [id number] Information not available 10/30/2022 At What Age Did You Start Smoking Tobacco? 13 MIGRATION.0301 [id number] Information not available 10/30/2022 Are You Passively Exposed To Smoke? No MIGRATION.0301 323682 Information not available 10/30/2022 Are There Any Smokers In Your House? No MIGRATION.0301 017357 Information not available 10/30/2022 How Much Tobacco Do You Smoke? 0.5 PPD [email or web address] Information not available 06/06/2024 What Types Of Sporting Activities Do You Participate In? None [email or web address] Information not available 06/06/2024 Do You Feel Stressed (tense, Restless, Nervous, Or Anxious, Or Unable To Sleep At Night)? [id number] MIGRATION.0301 [id number] Information not available 10/30/2022 Do You Use Any Illicit Or Recreational Drugs? No MIGRATION.0301 596242 Information not available 10/30/2022 Do You Use Sunscreen Routinely? No MIGRATION.0301 236346 Information not available 10/30/2022 Has Tobacco Cessation Counseling Been Provided? No MIGRATION.0301 185080 Information not available 10/30/2022 How Many Years Have You Smoked Tobacco? 40 [email or web address] Information not available 06/06/2024 Have You Recently Traveled Abroad? No MIGRATION.0301 104773 Information not available 10/30/2022 Do You Have Any Dietary Restrictions? No MIGRATION.0301 099009 Information not available 10/30/2022 Do You Or Have You Ever Used Any Other Forms Of Tobacco Or Nicotine? No MIGRATION.0301 252364 Information not available 10/30/2022 How Many Days In The Past Year Have You Consumed 4 Or More Drinks? -1 [email or web address] Information not available 06/06/2024 Sex: Unknown Functional Status Question Answer Note LastModified by Organizat ion Details LastModified Time What is your exercise level? None MIGRATION.[id number] Information not available 10/30/2022 Mental Status None recorded. Family History Relationship Description Onset Age of this Age Resolved Age Notes LastModified by Organization Details LastModified Time Unspecified Relation Family history of malignant neoplasm MIGRATION.631 [id number] Not available 10/30/2022 00:04:58 Unspecified Relation Diabetes mellitus MIGRATION.213 [id number] Not available 10/30/2022 00:04:58 Unspecified Relation Depressive disorder MIGRATION.430 4731842 Not available 10/30/2022 00:04:58 Unspecified Relation Hypertensive disorder MIGRATION.340 0511544 Not available 10/30/2022 00:04:58 Unspecified Relation Hyperlipidem ia MIGRATION.128 [id number] Not available 10/30/2022 00:04:58 Medical History No medical history recorded. Gynecological HistoryNo gynecological history recorded. Obstetrics History GPAL:G 2 P 0 0 1 1 Type Value Induced 1 Living 1 Total 2 Immunizations Vaccine Type Date Status Note Provider Nam e and Address Organization Details Recorded Time Influenza, split virus, quadrivalent, PF 06/19/2022 completed Not Available [employer] 00:06:28 Influenza, split virus, quadrivalent, PF 06/12/2023 completed Romina Stufflebean, RMA null, [place] [employer] [facility] 06/12/2023 13:41:37 Influenza, split virus, trivalent, PF 06/06/2024 completed Romina Stufflebean, RMA null, [place] - [employer] [facility] 06/06/2024 18:09:06 Past Encounters Encounter ID Performer Location Encounter Start Date Encounter Closed Date Diagnosis/Indication Diagnosis SNOMED-CT Code Diagnosis ICD10 Code Diagnosis Note [id number] [facility] [address] [address] 10/09/2021 00:00:00 10/09/2021 12:27:40 [id number] [facility] [address] [address] 02/06/2022 00:00:00 02/06/2022 13:10:04 [id number] [facility] [address] [address] 02/21/2022 00:00:00 02/21/2022 14:47:46 [id number] [facility] [address] [address] 06/19/2022 00:00:00 06/19/2022 17:50:58 [id number] [facility] [address] [address] 09/11/2022 00:00:00 09/11/2022 17:22:27 [id number] [facility] Internal [address] [place] [address] 10/20/2022 00:00:00 10/20/2022 13:10:03 [id number] Roosevelt Gimenez MD [facility] Internal Med [address] [place] [address] 02/27/2023 11:30:31 02/27/2023 12:15:51 Essential hypertension 21456473 I10 under control Hypothyroidism 61780922 E03.9 labs good Chronic ob structive pulmonary disease 36592769 J44.9 under control with meds Hyperlipidemia 23182497 E78.5 labs good Gastroesop hageal reflux disease 804039770 K21.9 better with meds Depressive disorder 3548 9007 F32.A under control Anxiety 69915602 F41.9 better with meds Osteopenia 872002920 M85 .80 on caltrate Adult heal th examination 723796008 Z00.00 Mammo- 04/21Dexa-1 ap- olono scopy- 6 years ago per [facility]- 06/21Covid - 12/22/20,0 11/24/20, booster 07/2116L20-6 10/03/20PPV [id number] Roosevelt Gimenez MD [facility] Internal [facility] [address] [place] [address] 06/12/2023 10:52:05 06/12/2023 11:26:12 Essential hypertension 18063459 I10 under control Hypothyroidism 00617684 E03.9 under control Chronic ob structive pulmonary disease 30727064 J44.9 under control with meds Hyperlipidemia 50499136 E78.5 under control Gastroesop hageal reflux disease 279505054 K21.9 better with meds Depressive disorder 3548 9007 F32.A under control Anxiety 32641613 F41.9 better with meds Osteopenia 955538559 M85 .80 on caltrate Adult heal th examination 766400892 Z00.00 Mammo- 04/21Dexa-1 2Pap- 1Colono scopy- 6 years ago per [facility]- 06/12/23Co vid- 12/22/20,0 11/24/20, booster 07/2140F44-5 10/03/20PPV Administra tion of influenza vaccine 47300373 Z23 Screening mammography 24 696508 Z12.31 [id number] Roosevelt Gimenez MD [facility] Internal [facility] [address] [place] [address] 10/05/2023 10:54:37 10/05/2023 12:00:14 Essential hypertension 91899477 I10 under control Hypothyroidism 37971311 E03.9 under control Chronic ob structive pulmonary disease 38366977 J44.9 under control with meds Hyperlipidemia 72389333 E78.5 under control Gastroesop hageal reflux disease 782866816 K21.9 better with meds Depressive disorder 3548 9007 F32.A under control Anxiety [id number] F41.9 better with meds Osteopenia 852863986 M85 .80 on caltrate [facility] examination [id number] Z00.00 Mammo- 04/21- ORDEREDDex a-07/2022- Pap- 1Colono scopy- 6 years ago per PTFlu- 06/12/23Co vid- 12/22/20,0 11/24/20, booster 07/2165R13-9 10/03/20PPV Screening mammography 24 103821 Z12.31 Long-term drug therapy [id number] Z79.443 [id number] Roosevelt Gimenez MD [facility] Internal [facility] [address] [place] [address] 02/01/2024 10:53:11 02/01/2024 12:07:49 Essential hypertension [id number] I10 under control Hypothyroidism 75794357 E03.9 under control Chronic ob structive pulmonary disease 73499821 J44.9 under control with meds Hyperlipidemia 63249913 E78.5 under control Gastroesop hageal reflux disease 268336517 K21.9 better with meds Depressive disorder 3548 9007 F32.A under control with meds Anxiety 90716489 F41.9 better with meds, needs it daily Osteopenia 598405629 M85 .80 on caltrate Adult heal th examination 987723574 Z00.00 Mammo- 04/21- ORDEREDDex a-07/2022- Pap- 1Colono scopy- 6 years ago per PTFlu- 06/12/23Co vid- 12/22/20,0 11/24/20, booster 07/2177F82-2 10/03/20PPV Screening mammography 24 206288 Z12.31 Long-term drug therapy 605211941 Z79.899 Ex-smoker 1142134 Z87.89 1 [id number] Roosevelt Gimenez MD [facility] Internal [address] [place] [address] 06/06/2024 10:56:22 06/06/2024 12:10:35 Essential hypertension 79645351 I10 under control Hypothyroidism 59638385 E03.9 under control with meds Chronic ob structive pulmonary disease 48478719 J44.9 under control with meds Hyperlipidemia 47776820 E78.5 under control, keep watching diet, Gastroesop hageal reflux disease 919488946 K21.9 better with meds, needs daily Depressive disorder 3548 9007 F32.A under control with meds Anxiety 70181660 F41.9 better with meds, needs it daily Osteopenia 549382703 M85 .80 on caltrate [facility] examination 958853844 Z00.00 Mammo- no record but done 2023LDCT- 09/28/2023 Dexa-08/19 22Pap- 1Colono scopy- 6 years ago per PTFlu- 06/06/2024 Covid- 12/22/20,0 11/24/20, booster 07/2198W57-2 10/03/20PPV shingles shot x 2 Administra tion of influenza vaccine 21375351 Z23 Screening for disorder 036273017 Z13.9 [id number] Roosevelt Gimenez MD [facility] Internal [address] [place] [address] 08/02/2024 14:48:40 08/02/2024 15:33:25 Chest wall pain 067940742 R07.89 its due to cough [id number] Cher Lamb NP [facility] [address] [place] [address] 09/01/2024 14:16:28 09/01/2024 15:12:40 Muscle pain 19574396 M79.10 discussed f/u wiht pulmonolog y as scheduled and with dr gimenez as schedule, call if any questions Chest wall pain 26518403 6 R07.89 Health Concerns Section Related Observation LastModified by Organization Detai ls LastModified Time None Recorded Concern Status LastModified by Organization Details LastModified Time None Recorded Advance Directives Directive Y: requested copy for office 06/06/2024 Payers Encounter Date Sequence Insurance Name Policy Number Policy Valdez Covered Member ID Valdez Member ID Guarantor Name 10/05/2023 1 [facility] [id number] Gustabo Garcia Haste [id number] [facility] 10/05/2023 2 [place]ala A Haste [id number] [place]ala Haste 02/01/2024 1 [facility] [id number] Gustabo Garcia Haste [id number] [facility] 02/01/2024 2 [place]MEDICARE[place] T[place]ala A Haste [id number] T[place]ala Haste 06/06/2024 1 [facility] [id number] Gustabo Garcia Haste [id number] [facility] 06/06/2024 2 [place]ala A Haste [id number] T[place]ala Haste 08/02/2024 1 [facility] [id number] Gustabo Garcia Haste [id number] [facility] 08/02/2024 2 [place] T[place]ala A Haste [id number] T[place] Haste 09/01/2024 1 [facility] [id number] Gustabo Garcia Haste [id number] [facility] 09/01/2024 2 [place] A Haste [id number] [place]ala Haste Notes Date Note Type Note Provider Name and Address Organization Details Recorded Time 10/05/2023 text/html Pt is here for f /u, compliant to medsHTN- on meds and under controlMEDS- Atenolol 50 MG qdCOPD- using inhaler, on o2 2L,, [facility] Bre[facility]tri 160 MG 2 PUFFS BID, albuterol inhaler 90 mcgHypothyroidism- on meds, labs 12/21med-Levothyroxi ne 75mcg,Hyperlipidemi a- , labs good 12/21Med-atorvastati n 10 mgGERD- meds help,med- Omeprazole 20 mgDepression- mood is under control, sleeps fine, no anxietymed-Fluoxeti ne 40 mg qdAnxiety- mood under control, no anxietymed-Buspiron e 5mg BID PRNChronic back pain- taking Tizanidine as needed- seeing pain management, s/p epidural, pain meds prn,Also has costochondritis.med - gabapentin 800 mg tid, Tizanidine 4 mgEx - smoker- quit in 2011, smoked for years, 1/2 PPD, gets LDCT at pul, last one 09/22, small noduleOsteopenia- dexa 08/21, on caltrate Roosevelt Gimenez MD [address] [facility], [address], [place], [address], [place] [facility] 10/05/2023 11:48:08 02/01/2024 text/html Pt is here for f /u, compliant to medsHTN- on meds and under controlMEDS- Atenolol 50 MG qdCOPD- using inhaler, on o2 2L at night time, [facility] Breztri 160 MG 2 PUFFS BID, albuterol inhaler 90 mcgHypothyroidism- on meds, labs 12/21, goodmed-Levothyroxi ne 75mcg,Hyperlipidemi a- , labs good 12/21Med-atorvastati n 10 mgGERD- meds help,med- Omeprazole 20 mgDepression- mood is under control, sleeps fine, no anxietymed-Fluoxeti ne 40 mg qdAnxiety- mood under control, no anxietymed-Buspiron e 5mg BIDChronic back pain- taking Tizanidine as needed- seeing pain management, s/p epidural, pain meds prn,Also has costochondritis.med - gabapentin 800 mg tid, Tizanidine 4 mgEx - smoker- quit in 2011, smoked for years, 1/2 PPD, gets LDCT at pul, last one 09/22, small noduleOsteopenia- dexa 08/21, on caltrate Roosevelt Gimenez MD [address] [facility], [address], [place], [address], [place] [employer] 02/01/2024 12:03:46 06/06/2024 text/html Pt is here for f /u, compliant to medsHypertension- on meds and under controlMEDS- Atenolol 50 MG qdCOPD- using inhaler, on o2 2L at night time, [facility] Breztri 160 MG 2 PUFFS BID, albuterol inhaler 90 mcgHypothyroidism- on meds, labs 11/21med-Levothyroxi ne 75mcg,Hyperlipidemi a- , labs good 11/21Med-Atorvastati n 10 mgGERD- meds help, needs meds dailymed- Omeprazole 20 mgDepression- mood is under control, sleeps fine, no anxietymed-Fluoxeti ne 40 mg qdAnxiety- mood under control, no anxietymed-Buspiron e 5mg BIDChronic back pain- taking Tizanidine as needed- seeing pain management, s/p epidural, pain meds prn,Also has costochondritis.med - Gabapentin 800 mg tid, Tizanidine 4 mgEx - smoker- quit in 2011, smoked for years, 1/2 PPD, gets LDCT at pul, last one 09/23, small noduleOsteopenia- dexa 08/21, on caltrate Roosevelt Gimenez MD [address] [facility], [place], [address], [employer] 06/06/2024 14:14:45 08/02/2024 text/html Pt is here today for right chest and back pain. Worse at nightThinks she may have pleurisy. pain on the right side of her chest radiating around to her backPAIN HAPPENS ONLY ON COUGHINGNo fever. Non productive cough. Has been going on for about 4 days Roosevelt Gimenez MD [address] [facility], [address], [place], [address], [employer] [facility] 08/02/2024 15:31:48 09/01/2024 text/html pt is here for a [facility] visit for fractured ribs from coughing she thinks. pt did not stay but she got bloodwork and xrays done they told her to f/u with the dr. montoya otc med at the moment. Cher Lamb NP [address] [facility], [address], [place], [address], [employer] 09/01/2024 15:07:24 OBGyn Episode No OBEpisode recorded.
== END 2024-09-29 09:29 | disposition home or self-care (01) ==
PROVIDERS: PCP Internal Medicine; Visit Provider Nurse Practitioner Family
DX: Z12.2 Encounter for screening for malignant neoplasm of respiratory organs (principal); Z87.891 Personal history of nicotine dependence
CPT/HCPCS: 71271